=== PATIENT | male | born 2005 | race Caucasian/White ===

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

== ENCOUNTER 2024-06-23 11:00 | Outpatient (CLI) | payer BC, SELFPAY ==
--- NOTE | ~2024-06-23 | CT_ITS ---
EXAMINATION: CT wrist RT wo con DATE: 06/23/2024 12:43 INDICATION: Hamate fracture TECHNIQUE: High resolution computed tomography (CT) of the hamate was performed without intravenous c ontrast. Additional sagittal and coronal reconstructions were performed. Automated exposure control a nd iterative reconstruction technique were employed. The dose-length product was 326.53 mGy-cm. COMPARISON: Radiographs dated 06/23/2024 FINDINGS: Comminuted intra-articular fracture of the hamate. There is dorsal displacement and impaction with do rsal buckling of the fragments dorsal to the dominant coronally oriented fracture plane. This results in a 6 mm fracture gap at the volar aspect of the articular surface. There is a second comminuted in tra-articular impaction fracture at the base of the fourth metacarpal with 2-3 mm palmar displacement of the dominant volar sided fragment. There are a few tiny central fracture fragments. No other frac tures identified. Aside from the fractures the joint spaces are normal. Mild subcutaneous edema about the ulnar side of the hand. IMPRESSION: 1. Comminuted intra-articular fracture of the hamate and base of the fourth metacarpal with displacem ent as detailed above. Reviewed, dictated and finalized at location B. [employer] IMPRESSION: 1. Comminuted intra-articular fracture of the hamate and base of the fourth met acarpal with displacement as detailed above.
--- NOTE | ~2024-06-23 | XR_ITS ---
XR hand RT min 3V Ordering provider: Maribell Hou History: . M79.641 - Pain in right hand . Comparison: None. FINDINGS: BONES: No acute fracture or dislocation. JOINT SPACES: Normal. SOFT TISSUES: Normal. IMPRESSION: No acute osseous abnormality right hand. Reviewed, dictated and finalized at location A. CTOR OF SALES MARKETING
== END 2024-06-23 11:01 | disposition home or self-care (01) ==
PROVIDERS: PCP Nurse Practitioner Family; Visit Provider Plastic Surgery
DX: S62.141A Displaced fracture of body of hamate [unciform] bone, right wrist, initial encounter for closed fracture (principal); X58.XXXA Exposure to other specified factors, initial encounter
CPT/HCPCS: 73130; 73200

== ENCOUNTER 2024-06-26 02:41 | Day surgery (SDC) | payer BC, SELFPAY ==
--- NOTE | 2024-06-24 10:21 | PC.NURSE ---
Report to the Outpatient Waiting Room, entrance under the green pavilion located off [facility], at time _10:00am on date _06/26/24 . Planned Procedure Time: _12:00pm .? Time changes happen often and if your time is changed the preop area will call you the afternoon before. - You and your visitor will be asked to self-screen and do not enter if you have any COVID symptoms. Please call surgeon if you need to reschedule. - A mask is optional within the hospital at this time. Patients -- No food or drink from midnight until time of surgery and no smoking. This includes no chewing gum, candy or mints.- Take only the following medications with a SIP of water on the morning of surgery: __None DO NOT STOP ANY OF YOUR OTHER PRESCRIPTION MEDICATIONS PRIOR TO SURGERY EXCEPT THE FOLLOWING Medications to discontinue per physician ___None Date to take last dose None Please no make-up, nail togolese, hairspray, perfume, deodorant, or body powder the day of surgery.? No jewelry (including any body piercings) or valuables the day of surgery, leave them at home.? Please take a shower or bath the night before, or the morning of, surgery with an antibacterial soap.? Wear comfortable, loose fitting clothing.? Children are encouraged to wear pajamas. - Jewelry must be removed prior to entering the operating room.? Rings and piercings that are not removed may be cut off. - The hospital will not accept responsibility for valuables.? - Please leave all valuables, including medications, at home the day of surgery. If you are going home after surgery, a licensed pile driver operator barge mounted must drive you home.? - NO public transportation without another adult if you receive anesthesia. - We recommend that an adult stay with you for 24 hours following discharge. - We also recommend that you do not drive, make important decision, drink alcoholic beverages, or take any drugs that were not prescribed by your health care provider for at least 24 hours after your discharge time. Follow any additional instructions given to you from your surgeon. Telephone instructions given to _Patient and asked if any additional questions and then verbalized understanding. Patient advised to call surgeon office or pre surgery nurse liaison [phone] if any additional questions.
[2024-06-24 12:06] VITALS: BMI 42.9
[2024-06-26] VITALS (10 sets, daily range): BP systolic 134–162; BP diastolic 71–99; PULSE 68–93; RESP 14–20; TEMP 36.2–36.4; O2SAT 97–100
--- NOTE | ~2024-06-26 | XR_ITS ---
EXAMINATION: XR surgery orthopedic DATE: 06/26/2024 13:12 INDICATION: ORIF of the right hamate and fourth metacarpal fracture. TECHNIQUE: 3 fluoroscopic images of the right wrist were obtained during procedure performed by Dr. Ronny kelley. Radiologist was not present for the imaging or procedure. The amount of fluoroscopy time u sed during this procedure was 2.1 minutes. Total DAP was 7.363 cGycm^2 COMPARISON: CT dated 06/23/2024 FINDINGS: Initial image demonstrates placement dorsal palmar placement of a fixation device, possibly a walker james screw across the hamate fracture which appears. Reduced to near-anatomic alignment. Subsequent i mages demonstrate reduction of the fracture subluxation of the base of the fourth metacarpal which is now fixed by percutaneous pins extending across the proximal aspect of the third-fifth metacarpals. No new fractures identified. Joint spaces appear relatively preserved throughout. IMPRESSION: 1. Near-anatomic alignment post reduction and fixation of fractures of the hamate and base of the fou rth metacarpal. See procedure note for further detail. Reviewed, dictated and finalized at location B. CTOR OF PATIENT SAFETY IMPRESSION: 1. Near-anatomic alignment post reduction and fixation of fractures of the hama te and base of the fourth metacarpal. See procedure note for further detail.
--- NOTE | 2024-06-26 06:59 | WPDHPUPDATE1 ---
History and Physical Update Update Date/Time: 06/26/24 06:59 Patient seen and examined in pre-operative holding area. No interval change in medical history or symptoms. Patient recalls previous discussion of benefits and alternatives to procedure. Continues to desire to proceed with open reduction internal fixation right hamate and right fourth metacarpal fracture. Reviewed procedure, post-op expectations and risks including but not limited to bleeding, infection, injury to tendon/nerve/vessel, decreased hand function, stiffness, RSD, no change or worsening of symptoms, malunion, nonunion. I discussed the possible use of assistants and their participation in the case. Patient stated understanding and signed the consent form wishing to proceed.
--- NOTE | 2024-06-26 07:00 | P.OP_ITS ---
Procedure Note - Detailed Date of Procedure 06/26/24 Pre-op Diagnosis right hamate and foruth metacarpal fracture Post-op Diagnosis Same Procedure Performed orif right hamate and 4th mc fx Surgeon aMribell Hou MD Manufacturing Technology Professor gilbert carr pa-c Anesthesia MAC Description of Procedure INFORMED CONSENT: The patient was seen and examined and marked in the pre-op area.? The patient signed the consent form. PROCEDURE IN DETAIL:The patient taken back to OR on the stretcher in supine position. Time out performed with anesthesia, surgeon and staff agreeing on patient's name site and surgery to be performed SCDs were placed on the lower extremities and inflated. A tourniquet was placed on {right} upper extremity and antibiotics given IV After anesthesia administered sedation I injected {8}cc 1%lido and 0.5% marcaine plain at the operative site The?{right upper extremity}?was prepped and draped in sterile fashion the??{right upper extremity} was? exsanguinated with Esmarch bandage and tourniquet inflated to 250mmHg Any C-arm was draped and brought into the field. I began a applying traction to the 4th and 5th metacarpals utilizing ligament to [place] to help improve reduction of the hamate and 4th metacarpal base fracture. I proceeded with placing a 6 2 and a 4 5 K-wire in an ulnar to radial fashion across the 5th 4th 3rd metacarpals. This helped maintain reduction of the hamate and the 4th metacarpal fracture. I I proceeded with making a longitudinal incision over the dorsum of the hamate through skin and dermis with a 15 blade scalpel. Littler scissors were used to spread through subcutaneous tissue down to the joint capsule. I proceeded with making an incision over the periosteum of the hamate and then elevated these periosteal skin flaps. Multiple views of mini fluoroscopy were used to verify position of hamate. Preoperative CT images were measured noting that the thickness of the hamate was less than 14 mm occluding expected compression of the fracture site. Because of this I marked my initial K-wire for 10 mm. This was inserted in a dorsal to volar fashion. Multiple views of fluoroscopy were taken noting this K-wire appeared to be appropriately placed in the hook of the hamate. I measured and used a marking pen to ha the drill bit as well at 10 mm. I drilled over the K-wire stopping just short of this 10 mm marking. I proceeded with placing an Arthrex 2.5 mm diameter 8 mm long screw. Screw placement was verified on multiple views of fluoroscopy as well as live fluoro and appear to be in appropriate position with improved compression of the dorsal hamate fracture fragment. I irrigated with normal saline and repaired the periosteum with 3-0 Vicryl suture. 3-0 Vicryl was used for dermis and 4-0 Monocryl used for subcuticular closure. The K-wires were trimmed below the skin. Further fluoroscopic imaging noted improved proximal cascade of the metacarpals and the previously noted prominent dorsal hamate fragment was compressed and reduced in a more appropriate fashion. A dressing of Dermabond, 4x4, adelaida, and a volar splint was applied for patient safety, security, and comfort and secured with an lennox bandage after the tourniquet was let down noting the hand was warm and well perfused. The patient was then awaken from anesthesia and transferred to the recovery room in stable condition.? Complications - none EBL- 1cc Disposition - home in stable conditions Gilbert Carr PA-C was essential for positioninig, retraction, fluoro, reduction,, instrumentation, closure and dressing palcement [facility] [place] Billing Surgery - Charge Forward: Surgery Billing ([id number]. same codes for gilbert jones )
[2024-06-26] MEDS: LACTATED RINGERS 1,000 ML 30 ML IV CONT ×2 (10:37→13:22)
--- NOTE | 2024-06-26 11:48 | WPDANESEPPF ---
Anes - Initial Pre Proc Eval Procedure: Operation Date: 06/26/24 12:00 Proposed Procedures p Open Reduction Internal Fixation Right Hamate and Fourth Metacarpal Fracture - Maribell Hou MD Date/Time: 06/26/24 11:48 Surgeon: Maribell Hou MD Pre Op Diagnosis: right hamate fx Patient Data Age: 18 Gender: M Height: 1.73 m Weight: 133.5 kg Last Vital Signs Temp 97.6 F 06/26/24 10:10 Pulse 93 06/26/24 10:10 Resp 16 06/26/24 10:10 BP 158/79 H 06/26/24 10:10 Pulse Ox 99 06/26/24 10:10 O2 Del Method Room Air 06/26/24 10:10 Allergies Allergy/AdvReac Type Severity Reaction Status Date / Time No Known Allergies Allergy Verified 06/26/24 10:21 Home Medications ?Medication ?Instructions ?Recorded ?Confirmed ?Type deucravacitinib 6 mg tablet 6 mg PO DAILY 10/30/23 06/24/24 History (Sotyktu) cephalexin 500 mg capsule 500 mg PO Q8H #21 caps 06/26/24 Rx hydrocodone 5 mg-acetaminophen 325 1 tablet PO Q6H PRN pain #12 tabs 06/26/24 Rx mg tablet Patient hx anesthesia problems: none Family hx anesthesia problems: none and other (Father reports that pts mother has problems w some local anesthetics at the dentist. (-sloan). No hx of MH or family hx of high temp under GA. ) Results Review: All pre-operative results and documents have been reviewed as part of the pre-operative evaluation. [facility] Past Medical History Medical History Appendicitis Surgical History Surgical History Hx of appendectomy Family History Family History Grandparent Diabetes mellitus Hypertension Heart problem Grandparent Diabetes mellitus Hypertension Heart problem Mother Depression Anxiety Father Depression Anxiety Heart problem Sibling Depression Anxiety Thyroid disorder Social History Social History Social History: Student Smoking status: Never smoker Second hand tobacco smoke exposure: No Alcohol intake: never Substance use: never Substance use type: does not use Lack of Transportation: No Lack of Food: Never True Current Housing: I Have Housing Concerned About Future Housing: No Difficulty Paying Gas/Electric Bills: No Difficulty Paying for Meds: No Currently Unemployed: No Education: High School Diploma/GED Difficulty w/ Childcare or Family Care: No Living arrangements: with family Occupation/Education: student Additional occupation/education comments: starting college at [employer] for [employer] Gender identity (if verbalized by the patient): Male Spiritual care concerns: No Anes - Eval Final PreProcedure Day of Procedure 06/26/24 11:48 Patient weight: morbidly obese Heart: regular rate and rhythm Lungs: clear to auscultation Airway: Mallampati scale class II Neurological: alert and oriented Last oral intake: >/= 8 hours ASA classification: III Emergent: no Anesthetic plan: proceed Anesthesia type and monitoring: general LMA and standard monitoring Results Review: All pre-operative results and documents have been reviewed as part of the pre-operative evaluation. BMI 44. Pts father says pt snore, no known ANNALISA. Informed Consent: The patient's anesthetic plan and its attendant risks and benefits were discussed with the patient/family/POA. Questions were solicited and answers provided to the satisfaction of the patient/family/POA.
[2024-06-26] MEDS: ceFAZolin 3 GM/D5W 100 ML 100 ML IVPB (11:55)
[2024-06-26] MEDS: LIDOCAINE 1% LOCAL INJ 10 ML VIAL 5 ML INFILTRATE (12:17)
[2024-06-26] MEDS: BUPivacaine HCL 0.5% 10 ML AMP 5 ML INFILTRATE (12:18)
[2024-06-26] MEDS: fentaNYL CITRATE INJ (*CRX) 100 MCG/2 ML VIAL 25 MCG IV PUSH ×4 (13:48→14:02)
[2024-06-26] MEDS: ONDANSETRON INJ 4 MG/2 ML VIAL IV PUSH (14:17)
[2024-06-26] MEDS: oxyCODONE HCL (*CRX) 5 MG TAB IR PO (14:44)
== END 2024-06-26 15:30 | disposition home or self-care (01) ==
PROVIDERS: PCP Nurse Practitioner Family; Visit Provider Plastic Surgery
PROC: (CPT 25645; principal; 2024-06-26 12:00)
DX: S62.141A Displaced fracture of body of hamate [unciform] bone, right wrist, initial encounter for closed fracture (principal); X58.XXXA Exposure to other specified factors, initial encounter; Z79.891 Long term (current) use of opiate analgesic; Z98.890 Other specified postprocedural states; Z82.49 Family history of ischemic heart disease and other diseases of the circulatory system
CPT/HCPCS: 25645; 26685; 99199; A9270; C1713; J0690; J2003; J2250; J2405; J2704; J3010; J7120

== ENCOUNTER 2024-07-11 10:50 | Outpatient (CLI) | payer BC, SELFPAY ==
--- NOTE | ~2024-07-11 | XR_ITS ---
XR wrist RT min 3V Ordering provider: Fabiola Nickerson PA-C History: . S62.141A - Displaced fracture of body of hamate [unciform... . Comparison: June 23/2024 FINDINGS: BONES: Postoperative changes are seen in the area of the third, fourth and fifth metacarpal bones. Ca st is seen medially. Screw is noted in the area of the hamate bone. JOINT SPACES: Normal. SOFT TISSUES: Normal. IMPRESSION: Postoperative changes are present. The medial 3 metacarpal bones. Postoperative changes in the hamate bone. Reviewed, dictated and finalized at location A. ON SETTER
== END 2024-07-11 10:51 | disposition home or self-care (01) ==
LOC: ANHIMG 10:51
PROVIDERS: PCP Nurse Practitioner Family; Visit Provider Physician Assistant Surgical
DX: S62.141D Displaced fracture of body of hamate [unciform] bone, right wrist, subsequent encounter for fracture with routine healing (principal); X58.XXXD Exposure to other specified factors, subsequent encounter
CPT/HCPCS: 73110

== ENCOUNTER 2024-07-25 11:44 | Outpatient (CLI) | payer BC, SELFPAY ==
--- NOTE | ~2024-07-25 | XR_ITS ---
EXAMINATION: XR hand RT 2V DATE: 07/25/2024 12:02 INDICATION: Displaced fracture of body of hamate. TECHNIQUE: 2 views of right hand were obtained. COMPARISON: Right hand radiographs 06/23/2024, right wrist CT 06/23/2024 FINDINGS: Alignment is normal. There is a fracture deformity of hamate with screw fixation in near-an atomic alignment. There is a fracture deformity of base of fourth metacarpal in near-anatomic alignme nt. There are 2 pins involving the third-fifth metacarpals. Joint spaces are normal. Cast material is noted. IMPRESSION: 1. Fracture deformities of hamate and base of fourth metacarpal without change. Reviewed, dictated and finalized at location A. LOGY TEACHER
--- OUTSIDE RECORDS SUMMARY | 2024-07-25 11:48 | XMS_ITS | Patient Health Summary ---
Author Organization [facility] Address [address] [place] [address] Care Team Providers Care Union Steward Name Role Phone Basia Stephens MD Primary Care Provider [phone] Note from [facility],non-owned Affiliates and Associated Physician Practices is amultiple site organization consisting of ambulatory clinics and hospital sitesin [place], [place], [place] and [place]. This disclosure is being madepursuant to the Care Everywhere program and may not contain all information available regarding this patient. Last updated 18.[facility] Allergies No known active allergies Medications * Be aware that medications may not be up to date on this document. Alwaysverify current medications with the patient. * Diphenhydramine-Pseudoephed (BENADRYL ALLERGY/SINUS) 12.5-30 MG/5ML LIQD Take by mouth. bid Active Problems Problem Noted Date Diagnosed Date Spinal asymmetry (< 10 degrees) 12/09/2012 Genu valgum 12/09/2012 Social History Tobacco Use Types Packs/Day Years Used Date Smoking Tobacco: Never Alcohol Use Standard Drinks/Week Comments No 0 (1 standard drink = 0.6 oz pur e alcohol) Sex and Gender Information Value Date Recorded Sex Assigned at Not on file Gender Identity Not on file Sexual Orientation Not on file Procedures * XR SCOLIOSIS 1VW(Performed 11/25/2012) Performed for Scoliosis (and kyphoscoliosis), idiopathic Results * XR SCOLIOSIS ERECT (1+views) (11/25/2012 2:56 PM CDT) Anatomical Region Laterality Modality Spine Radiographic Molly ging 11/25/2012 3:09 PM CDT Impressions 11/25/2012 3:09 PM CDT Scoliosis and pelvic tilt as above. Narrative 11/25/2012 3:09 PM CDT Scoliosis series performed November 25, 2012. History: Scoliosis. Upright frontal and lateral views of the spine were obtained. No prior scoliosis films are available for comparison. There is a minimal thoracic dextroscoliosis with a Casarez angle of 10 degrees as measured from T4 to T11. No segmentation abnormalities or obvious paraspinal masses are noted. The right iliac crest is slightly higher than the left suggesting possible leg length discrepancy. Procedure Note Rola Morales MD - 11/25/2012 Scoliosis series performed November 25, 2012. History: Scoliosis. Upright frontal and lateral views of the spine were obtained. No prior scoliosis films are available for comparison. There is a minimal thoracic dextroscoliosis with a Casarez angle of 10 degrees as measured from T4 to T11. No segmentation abnormalities or obvious paraspinal masses are noted. The right iliac crest is slightly higher than the left suggesting possible leg length discrepancy. IMPRESSION Scoliosis and pelvic tilt as above. Nkechi Arrieta APRN-[facility] ROSE MARY G ORDERABLES Care Teams Union Steward Relationship Specialty Start Date End Date Basia Stephens MD PCP - General 01/17/10
--- OUTSIDE RECORDS SUMMARY | 2024-07-25 11:48 | XMS_ITS | Clinical Summary ---
Author Organization [facility] Address [address] [place] [address]. [place], [place] [address] [place] [address] Care Team Providers Care Family Resource Management Professor Name Role Phone Namita Campbell MD Primary Care Provider [phone] Allergies No known active allergies Social History Tobacco Use Types Packs/Day Years Used Date Smoking Tobacco: Never Smokeless Tobacco: Never Sex and Gender Information Value Date Recorded Sex Assigned at Not on file Legal Sex Male 6:55 PM CDT Gender Identity Not on file Sexual Orientation Not on file Last Filed Vital Signs Vital Sign Reading Time Taken Comments Blood Pressure 138/78 05/08/2021 5:48 PM JUNIOR PROJECT MANAGER Pulse 80 05/08/2021 5:48 PM JUNIOR PROJECT MANAGER Temperature 37.2 ??C (98.9 ??F) 05/08/2021 3:41 PM CS T Respiratory Rate 15 05/08/2021 5:48 PM JUNIOR PROJECT MANAGER Oxygen Saturation 100% 05/08/2021 5:48 PM JUNIOR PROJECT MANAGER Inhaled Oxygen Concentration - - Weight 81.6 kg (180 lb) 05/08/2021 3:41 PM JUNIOR PROJECT MANAGER Height 170.2 cm (5' 7 ) 05/08/2021 3:41 PM JUNIOR PROJECT MANAGER Body Mass Index 28.19 05/08/2021 3:41 PM JUNIOR PROJECT MANAGER Body Mass Index Percentile 95.19% 05/08/2021 3:4 1 PM JUNIOR PROJECT MANAGER Growth Chart: CDC (Boys, 2-2 0 Years) Plan of Treatment Health Maintenance Due Date Last Done Comments Annual Physical 11/11/2007 Meningococcal B Vaccine (1 o f 2 - Standard) 2020 HPV Vaccines (2 - Male 3-dos e series) 01/28/2021 12/31/2020 Hepatitis C 2022 DTaP, Tdap and Td Vaccines ( 1 - Tdap) 11/11/2023 Hepatitis B Vaccines (1 of 3 - 19+ 3-dose series) 11/11/2023 COVID-19 Vaccine ( - 2023-2 5 season) 2024 12/12/2020, 11/12/2020 Influenza Adult (#1) 2024 Meningococcal Vaccine Completed 12/31/2020 Pneumococcal Vaccine: Pediatrics (0 to 5 Years) and At-Risk Patients (6 to 64 Years) Aged Out No longer eligible b ased on patient's age to complete this topic RSV Immunizations Under 20 Months Aged Out No longer eligible b ased on patient's age to complete this topic Insurance Care Teams Family Resource Management Professor Relationship Specialty Start Date End Date Namita Campbell MD [address] [facility] [address] [place] [address] PCP - General FAMILY PRACTICE 05/08/21
--- OUTSIDE RECORDS SUMMARY | 2024-07-25 11:48 | XMS_ITS | Clinical Summary ---
Author Organization [facility] [employer] Address [address] [place] [address] Care Team Providers Care Slicer Machine Operator Name Role Phone Basia Stephens MD Primary Care Provider [phone] Source Comments [facility] [employer],non-owned Affiliates and Associated Physician Practices is amultiple site organization consisting of ambulatory clinics and hospital sitesin [place], [place], [place] and [place]. This disclosure is being madepursuant to the Care Everywhere program and may not contain all information available regarding this patient. Last updated 18.[facility] [employer] Allergies No known active allergies Medications * Be aware that medications may not be up to date on this document. Alwaysverify current medications with the patient. Medication Sig Dispensed Refills Start Date End Date Status Diphenhydramine-Pseudoe phed (BENADRYL ALLERGY/SINUS) 12.5-30 MG/5ML LIQD Take by mouth. bid Active Active Problems Problem Noted Date Diagnosed Date Spinal asymmetry (< 10 degrees) 12/09/2012 Genu valgum 12/09/2012 Family History Medical History Relation Name Comments Allergy (Severe) Neg Hx Anesthesia Reaction Neg Hx Arrhythmia Neg Hx Asthma Neg Hx Broken Bones Neg Hx Cancer Neg Hx Clotting Disorder Neg Hx Collagen Disease Neg Hx Diabetes Neg Hx Dislocations Neg Hx Hypercholesterolemia Neg Hx Hypertension Neg Hx [place] Neg Hx Marfan Syndrome Neg Hx Osteoporosis Neg Hx Rheumatological Disease Neg Hx Scoliosis Neg Hx Severe Sprains Neg Hx Sickle Cell Anemia Neg Hx Sudd. <30 Neg Hx Social History Tobacco Use Types Packs/Day Years Used Date Smoking Tobacco: Never Alcohol Use Standard Drinks/Week Comments No 0 (1 standard drink = 0.6 oz pur e alcohol) Sex and Gender Information Value Date Recorded Sex Assigned at Not on file Gender Identity Not on file Sexual Orientation Not on file Plan of Treatment Health Maintenance Due Date Last Done Comments HIV SCREENING 11/11/2019 HPV VACCINE (1 - Male 3-dose series) 11/11/2019 MENINGOCOCCAL (Group B) VACC INE (1 of 2 - Standard) 2020 HEPATITIS C SCREENING 11/06/2022 DTAP/TDAP/TD VACCINES (1 - Tdap) 11/11/2023 HEPATITIS B VACCINE (1 of 3 - 19+ 3-dose series) 11/11/2023 COVID-19 VACCINE (1 - 2023-2 5 season) 2024 INFLUENZA VACCINE (#1) 2024 DEPRESSION SCREENING 06/25/2024 ZOSTER VACCINE (1 of 2) 2054 HIB VACCINE Aged Out No longer eligi ble based on patient's age to complete this topic MENINGOCOCCAL VACCINE Aged Out No michael joann eligible based on patient's age to complete this topic PNEUMOCOCCAL VACCINE Aged Out No long er eligible based on patient's age to complete this topic Care Teams Slicer Machine Operator Relationship Specialty Start Date End Date Basia Stephens MD PCP - General 01/17/10
--- OUTSIDE RECORDS SUMMARY | 2024-07-25 11:48 | XMS_ITS | Referral Summary ---
Author Organization [facility] Address [address] [place] [address] Care Team Providers Care Fitter Hand Name Role Phone Basia Stephens MD Primary Care Provider [phone] Source Comments [facility] [employer],non-owned Affiliates and Associated Physician Practices is amultiple site organization consisting of ambulatory clinics and hospital sitesin [place], [place], [place] and [place]. This disclosure is being madepursuant to the Care Everywhere program and may not contain all information available regarding this patient. Last updated 18.[facility] [employer] Allergies No known active allergies Medications * [...] Orientation Not on file Plan of Treatment Not on file Care Teams Fitter Hand Relationship Specialty Start Date End Date Basia Stephens MD PCP - General 01/17/10
[2024-07-25 12:26] LABS: Basophils Percent Auto 0.6 % (0.2-1.2); Eosinophils Percent Auto 0.8 % (0-4.4); Hemoglobin 15.9 g/dL (14.0-18.0); Immature Granulocyte Absolute 0.01 K/mm3 (0.00-0.031); Immature Granulocyte Percent A 0.2 % (0-0.5); Lymphocytes Absolute Auto 1.34 K/mm3 (0.9-3.2); Lymphocytes Percent Auto 25.8 % (18.3-44.2); Mean Corpuscular HGB Conc 32.4 g/dl (32-36); Mean Corpuscular Hemoglobin 26.7 pg (26-34); Mean Corpuscular Volume 82.2 fl (80-100); Mean Platelet Volume 10.2 fl (7.4-10.4); Monocytes Absolute Auto 0.4 K/mm3 (0.1-0.6); Monocytes Percent Auto 7.3 % (2.6-8.5); Neutrophils Absolute Auto 3.4 K/mm3 (1.3-6.7); Neutrophils Percent Auto 65.3 % (45.5-73.1); Platelet Count Result 231 k/mm3 (150-375); Red Blood Count 5.96 M/mm3 (4.6-6.20); Red Cell Distribution Width 12.4 % (11.5-14.5); White Blood Count 5.2 K/mm3 (4.5-10.0)
[2024-07-25 12:39] LABS: Alanine Aminotransferase 46 U/L (6-50); Albumin Level 4.9 g/dL (3.7-5.6); Alkaline Phosphatase 83 U/L (58-237); Aspartate Amino Transferase 41 U/L (17-59); Bilirubin,Total 0.8 mg/dL (0.2-1.3)
== END 2024-07-25 11:45 | disposition home or self-care (01) ==
PROVIDERS: PCP Nurse Practitioner Family; Visit Provider Physician Assistant Surgical
DX: S62.141A Displaced fracture of body of hamate [unciform] bone, right wrist, initial encounter for closed fracture (principal); X58.XXXA Exposure to other specified factors, initial encounter; L40.0 Psoriasis vulgaris; Z79.899 Other long term (current) drug therapy
CPT/HCPCS: 36415; 73120; 80076; 85025

== ENCOUNTER 2024-08-01 00:51 | Day surgery (SDC) | payer BC, SELFPAY ==
[2024-07-22 13:49] VITALS: BMI 37.0
--- NOTE | 2024-07-22 13:53 | PC.NURSE ---
Report to the Outpatient Waiting Room, entrance under the green pavilion located off [facility], at time _1000_ on date _[id number]_. Planned Procedure Time: _1200_.? Time changes happen often and if your time is changed the preop area will call you the afternoon before. - You and your visitor will be asked to self-screen and do not enter if you have any COVID symptoms. Please call surgeon if you need to reschedule. - A mask is optional within the hospital at this time. Patients may have clear liquids (water, carbonated beverages, clear teas, apple juice) until 3 hours prior to surgery with a maximum of 20 ounces. - No food from midnight until time of surgery and no smoking. This includes no chewing gum, candy or mints. Take only the following medications with a SIP of water on the morning of surgery: ____None____ DO NOT STOP ANY OF YOUR OTHER PRESCRIPTION MEDICATIONS PRIOR TO SURGERY EXCEPT THE FOLLOWING Medications to discontinue per physician __None Date to take last dose Hold all vitamins and supplements for 3 days per anesthesiologist. Please no make-up, nail liberian, hairspray, perfume, deodorant, or body powder the day of surgery.? No jewelry (including any body piercings) or valuables the day of surgery, leave them at home.? Please take a shower or bath the night before, or the morning of, surgery with an antibacterial soap.? Wear comfortable, loose fitting clothing.? - Jewelry must be removed prior to entering the operating room.? Rings and piercings that are not removed may be cut off. - The hospital will not accept responsibility for valuables.? - Please leave all valuables, including medications, at home the day of surgery. If you are going home after surgery, a licensed hazardous materials driver must drive you home.? - NO public transportation without another adult if you receive anesthesia. - We recommend that an adult stay with you for 24 hours following discharge. - We also recommend that you do not drive, make important decision, drink alcoholic beverages, or take any drugs that were not prescribed by your health care provider for at least 24 hours after your discharge time. Follow any additional instructions given to you from your surgeon. Telephone instructions given to __Benjamin___and asked if any additional questions and then verbalized understanding. Patient advised to call surgeon office or pre surgery nurse liaison [phone] if any additional questions.
--- NOTE | 2024-07-22 13:57 | PC.NURSE ---
Report to the Outpatient Waiting Room, entrance under the green pavilion located off [facility], at time _1000_ on date _[id number]_. Planned Procedure Time: _1200_.? Time changes happen often and if your time is changed the preop area will call you the afternoon before. - You and your visitor will be asked to self-screen and do not enter if you have any COVID symptoms. Please call surgeon if you need to reschedule. - A mask is optional within the hospital at this time. May have clear liquids (water, carbonated beverages, clear teas, apple juice) until 4am with a maximum of 20 ounces. Nothing to drink after 4am. - No food from midnight until time of surgery and no smoking. This includes no chewing gum, candy or mints. Take only the following medications with a SIP of water on the morning of surgery: __None DO NOT STOP ANY OF YOUR OTHER PRESCRIPTION MEDICATIONS PRIOR TO SURGERY EXCEPT THE FOLLOWING Medications to discontinue per physician __None Date to take last dose Hold all vitamins and supplements for 3 days per anesthesiologist. Please no make-up, nail sudanese, hairspray, perfume, deodorant, or body powder the day of surgery.? No jewelry (including any body piercings) or valuables the day of surgery, leave them at home.? Please take a shower or bath the night before, or the morning of, surgery with an antibacterial soap.? Wear comfortable, loose fitting clothing.? - Jewelry must be removed prior to entering the operating room.? Rings and piercings that are not removed may be cut off. - The hospital will not accept responsibility for valuables.? - Please leave all valuables, including medications, at home the day of surgery. If you are going home after surgery, a licensed jinrikisha driver must drive you home.? - NO public transportation without another adult if you receive anesthesia. - We recommend that an adult stay with you for 24 hours following discharge. - We also recommend that you do not drive, make important decision, drink alcoholic beverages, or take any drugs that were not prescribed by your health care provider for at least 24 hours after your discharge time. Follow any additional instructions given to you from your surgeon. Telephone instructions given to __Benjamin___and asked if any additional questions and then verbalized understanding. Patient advised to call surgeon office or pre surgery nurse liaison [phone] if any additional questions.
--- NOTE | ~2024-08-01 | XR_ITS ---
EXAMINATION: XR surgery orthopedic DATE: 08/01/2024 12:26 INDICATION: Right hand pain removal TECHNIQUE: 2 fluoroscopic images of the right hand were obtained during procedure performed by Dr. Ab nunez. Radiologist was not present for the imaging or procedure. The amount of fluoroscopy time us ed during this procedure was 0.1 minutes. Total DAP was 0.861 cGycm^2. COMPARISON: 07/25/2024 FINDINGS: Interval removal of a pair of retained fixation pins with residual linear lucent tracts extending acr oss the fourth and fifth metacarpal diaphyses. Unchanged fixation screw at the hamate for fracture ve rsus better appreciated on prior CT dated 06/23/2024. No new fractures identified. Bone alignment brandt nt spaces are normal. IMPRESSION: 1. Fluoroscopy utilized during removal of fixation pins at the fourth and fifth metacarpals. See proc edure note for further detail. 2. Screw fixation at the hamate. Reviewed, dictated and finalized at location B. INE REBUILDER IMPRESSION: 1. Fluoroscopy utilized during removal of fixation pins at the fourth and fifth metacarpals. See procedure note for further detail. 2. Screw fixation at the hamate.
--- OUTSIDE RECORDS SUMMARY | 2024-08-01 00:53 | XMS_ITS | Referral Summary ---
Author Organization [facility] Address [address] [place] [address] Care Team Providers Care Director Of Category Management Name Role Phone Basia Stephens MD Primary Care Provider Source Comments [facility] [employer],non-owned Affiliates and Associated Physician Practices is amultiple site organization consisting of ambulatory clinics and hospital sitesin [place], [place], [place] and [place]. This disclosure is being madepursuant to the Care Everywhere program and may not contain all information available regarding this patient. Last updated 18.[facility] [employer] Allergies No known active allergies Medications * [...] of Treatment Not on file Care Teams Director Of Category Management Relationship Specialty Start Date End Date Basia Stephens MD PCP - General 01/17/10
--- OUTSIDE RECORDS SUMMARY | 2024-08-01 00:53 | XMS_ITS | Clinical Summary ---
Author Organization [facility] Address [facility] [place] [address] Care Team Providers Care Computer Technical Specialist Name Role Phone Namita Campbell MD Primary Care Provider [phone] Allergies No known active allergies Social History [...] Comments Blood Pressure 138/78 05/08/2021 5:48 PM INSTRUMENT MECHANICS SUPERVISOR Pulse 80 05/08/2021 5:48 PM INSTRUMENT MECHANICS SUPERVISOR Temperature 37.2 C (98.9 F) 05/08/2021 3:41 PM INSTRUMENT MECHANICS SUPERVISOR Respiratory Rate 15 05/08/2021 5:48 PM INSTRUMENT MECHANICS SUPERVISOR Oxygen Saturation 100% 05/08/2021 5:48 PM INSTRUMENT MECHANICS SUPERVISOR Inhaled Oxygen Concentration - - Weight 81.6 kg (180 lb) 05/08/2021 3:41 PM INSTRUMENT MECHANICS SUPERVISOR Height 170.2 cm (5' 7 ) 05/08/2021 3:41 PM INSTRUMENT MECHANICS SUPERVISOR Body Mass Index 28.19 05/08/2021 3:41 PM INSTRUMENT MECHANICS SUPERVISOR Body Mass Index Percentile 95.19% 05/08/2021 3:4 1 PM INSTRUMENT MECHANICS SUPERVISOR Growth Chart: CDC (Boys, 2-2 0 Years) [...] - 19+ 3-dose series) 11/11/2023 COVID-19 Vaccine (3 - 2023-2 5 season) 2024 12/12/2020, 11/12/2020 [...] to complete this topic Insurance Care Teams Computer Technical Specialist Relationship Specialty Start Date End Date Namita Campbell MD [address] [facility] [address] [place], [place] [id number] PCP - General FAMILY PRACTICE 05/08/21
--- OUTSIDE RECORDS SUMMARY | 2024-08-01 00:53 | XMS_ITS | Patient Health Summary ---
Author Organization [facility] Address [address] [facility] [place] [address] Care Team Providers Care Hand Stoner Name Role Phone Basia Stephens MD Primary Care Provider [phone] Note from [facility],non-owned Affiliates and Associated Physician Practices is amultiple site organization consisting of ambulatory clinics and hospital sitesin [place], [place], [place] and [place]. This disclosure is being madepursuant to the Care Everywhere program and may not contain all information available regarding this patient. Last updated 18.[facility] Allergies No known active allergies Medications * [...] DIAGNOSTIC ROSE MARY G ORDERABLES Care Teams Hand Stoner Relationship Specialty Start Date End Date Basia Stephens MD PCP - General 01/17/10
--- OUTSIDE RECORDS SUMMARY | 2024-08-01 00:53 | XMS_ITS | Clinical Summary ---
Author Organization [facility] [employer] Address [address] [facility] [place] [address] Care Team Providers Care Risk Control Product Liability Director Name Role Phone Basia Stephens MD Primary Care Provider [phone] Source Comments [facility] [employer],non-owned Affiliates and Associated Physician Practices is amultiple site organization consisting of ambulatory clinics and hospital sitesin [place], [place], [place] and [place]. This disclosure is being madepursuant to the Care Everywhere program and may not contain all information available regarding this patient. Last updated 18.[facility] [employer] Allergies No known active allergies Medications * [...] Hx Hypercholesterolemia Neg Hx Hypertension Neg Hx [place] Neg Hx Marfan Syndrome Neg Hx Osteoporosis [...] age to complete this topic Care Teams Risk Control Product Liability Director Relationship Specialty Start Date End Date Basia Stephens MD PCP - General 01/17/10
--- NOTE | 2024-08-01 10:12 | WPDHPUPDATE1 ---
History and Physical Update Update Date/Time: 08/01/24 10:12 Patient seen and examined in pre-operative holding area. No interval change in medical history or symptoms. Patient recalls previous discussion of benefits and alternatives to procedure. Continues to desire to proceed with removal right hand pin removal. Reviewed procedure, post-op expectations and risks including but not limited to bleeding, infection, injury to tendon/nerve/vessel, decreased hand function, stiffness, RSD, no change or worsening of symptoms. I discussed the possible use of assistants and their participation in the case. Patient stated understanding and signed the consent form wishing to proceed.
--- NOTE | 2024-08-01 10:12 | W.PM.PROC2 ---
Procedure Note - Detailed Date of Procedure 08/01/24 Pre-op Diagnosis s/p right hand fx Post-op Diagnosis Same Procedure Performed removal deep buried pins right hand Surgeon Maribell Hou MD Sociology Research Assistant gilbert carr pa-c Anesthesia MAC Description of Procedure INFORMED CONSENT: The patient was seen and examined and marked in the pre-op area.? The patient signed the consent form. PROCEDURE IN DETAIL:The patient taken back to OR on the stretcher in supine position. Time out performed with anesthesia, surgeon and staff agreeing on patient's name site and surgery to be performed SCDs were placed on the lower extremities and inflated. A tourniquet was placed on {right} upper extremity After anesthesia administered sedation I injected {5}cc 1%lido with epi and 0.5% marcaine plain at the operative site The?{right upper extremity}?was prepped and draped in sterile fashion 15 blade was used to make small incisions over the location of the pins on ulnar side of right hand after localization with mini flurosocopy. spreading with littler scissors down to the deep buried pins in subq tissue. pins removed with large needle transport truck driver. mini c-arm verified pin removal. fractures appears stable in reduction and healing. irrigation with normal saline. 4-0 chromic to close incisions A dressing of bacitracin, xeroform, 4x4, adelaida, and an lennox bandage was appliedafter the tourniquet was let down noting the hand was warm and well perfused. The patient was then awaken from anesthesia and transferred to the recovery room in stable condition.? Complications - none EBL- 0cc Disposition - home in stable conditions gilbert carr pa-c was essential for positioning, fluoro, closure and dressing placement [facility] Billing Surgery - Charge Forward: Surgery Billing ( and [id number] same for gilbert adding modifier )
[2024-08-01 10:27] VITALS: BP 142/85; PULSE 89; RESP 20; TEMP 36.3; O2SAT 98
--- NOTE | 2024-08-01 10:39 | SUR.PREOP ---
1015-Pt notified US RN (Gabe) per phone himself (after arriving in preop) to have Gabe initiate IV access. Gabe notified pre op staff of phone call and states he be here to start IV.
[2024-08-01] MEDS: LACTATED RINGERS 1,000 ML 30 ML IV CONT (11:05)
--- NOTE | 2024-08-01 11:59 | P.PNAN_ITS ---
Anes - Initial Pre Proc Eval Procedure: Operation Date: 08/01/24 12:00 Proposed Procedures p Right Hand Pin Removal - Maribell Hou MD Date/Time: 08/01/24 11:59 Surgeon: Maribell Hou MD Pre Op Diagnosis: s/p right hand fx Patient Data Age: 18 Gender: M Height: 1.75 m Weight: 134 kg Last Vital Signs Temp 36.3 C L 08/01/24 10:27 Pulse 89 08/01/24 10:27 Resp 20 08/01/24 10:27 BP 142/85 H 08/01/24 10:27 Pulse Ox 98 08/01/24 10:27 O2 Del Method Room Air 08/01/24 10:27 Allergies Allergy/AdvReac Type Severity Reaction Status Date / Time No Known Allergies Allergy Verified 08/01/24 10:29 Home Medications ?Medication ?Instructions ?Recorded ?Confirmed ?Type deucravacitinib 6 mg tablet 6 mg PO DAILY 10/30/23 08/01/24 History (Sotyktu) Patient hx anesthesia problems: none Family hx anesthesia problems: none Results Review: All pre-operative results and documents have been reviewed as part of the pre- operative evaluation. [facility] Past Medical History Medical History Appendicitis Surgical History Surgical History Hx of appendectomy Family History Family History Grandparent Diabetes mellitus Hypertension Heart problem Grandparent Diabetes mellitus Hypertension Heart problem Mother Depression Anxiety Father Depression Anxiety Heart problem Sibling Depression Anxiety Thyroid disorder Social History Social History Social History: Student Smoking status: Never smoker Second hand tobacco smoke exposure: No Alcohol intake: never Substance use: never Substance use type: does not use Lack of Transportation: No Lack of Food: Never True Current Housing: I Have Housing Concerned About Future Housing: No Difficulty Paying Gas/Electric Bills: No Difficulty Paying for Meds: No Currently Unemployed: No Education: High School Diploma/GED Difficulty w/ Childcare or Family Care: No Living arrangements: with family Occupation/Education: student Additional occupation/education comments: starting college at [employer] for [employer] Gender identity (if verbalized by the patient): Male Spiritual care concerns: No Anes - Eval Final PreProcedure Day of Procedure 08/01/24 11:59 Patient weight: morbidly obese Heart: regular rate and rhythm Lungs: clear to auscultation Airway: Mallampati scale class II Neurological: alert and oriented Last oral intake: >/= 8 hours ASA classification: III Emergent: no Anesthetic plan: proceed Anesthesia type and monitoring: general LMA and standard monitoring Results Review: All pre-operative results and documents have been reviewed as part of the pre- operative evaluation. Informed Consent: The patient's anesthetic plan and its attendant risks and benefits were discussed with the patient/family/POA. Questions were solicited and answers provided to the satisfaction of the patient/family/POA.
[2024-08-01] MEDS: BUPivacaine HCL 0.5% PF 30 ML VIAL INFILTRATE (12:20)
[2024-08-01] MEDS: LIDO 1%/EPINEPHRINE 1:100,000 20 ML VIAL 3 ML INFILTRATE (12:20)
[2024-08-01 12:27] VITALS: BP 150/83; PULSE 117; RESP 20; O2SAT 100
[2024-08-01 12:55] VITALS: BP 120/81; PULSE 83; RESP 16
[2024-08-01 13:25] VITALS: BP 134/84; PULSE 88; RESP 16; O2SAT 90
== END 2024-08-01 13:30 | disposition home or self-care (01) ==
PROVIDERS: PCP Nurse Practitioner Family; Visit Provider Plastic Surgery
PROC: (CPT 20694; principal; 2024-08-01 12:00)
DX: T84.84XA Pain due to internal orthopedic prosthetic devices, implants and grafts, initial encounter (principal); Y83.8 Other surgical procedures as the cause of abnormal reaction of the patient, or of later complication, without mention of misadventure at the time of the procedure; Z98.890 Other specified postprocedural states; Z82.49 Family history of ischemic heart disease and other diseases of the circulatory system
CPT/HCPCS: 20680; 99199; A9270; J2004; J2250; J2704; J3010; J7120

== ENCOUNTER 2024-08-15 10:58 | Outpatient (CLI) | payer BC, SELFPAY ==
--- NOTE | ~2024-08-15 | XR_ITS ---
EXAMINATION: XR hand RT min 3V DATE: 08/15/2024 11:10 INDICATION: Displaced fracture of body of hamate. TECHNIQUE: 3 views of right hand were obtained. COMPARISON: Right hand radiographs 07/25/2024 FINDINGS: There is a fracture deformity of the hamate with screw fixation. There are old wire tracts in the third-fifth metacarpals. Joint spaces are normal. IMPRESSION: 1. Ill-defined fracture deformity of hamate with screw fixation. Note that CT would provide better as sessment of fracture fragment alignment. Reviewed, dictated and finalized at location A. [facility] IMPRESSION: 1. Ill-defined fracture deformity of hamate with screw fixation. Note that CT w ould provide better assessment of fracture fragment alignment.
--- OUTSIDE RECORDS SUMMARY | 2024-08-15 11:33 | XMS_ITS | Clinical Summary ---
Author Organization [facility] Address [facility] [place] [address] Care Team Providers Care Biology Manager Name Role Phone Namita Campbell MD Primary Care Provider [phone] Allergies No known active allergies Social History [...] Comments Blood Pressure 138/78 05/08/2021 5:48 PM [employer] Pulse 80 05/08/2021 5:48 PM [employer] Temperature 37.2 C (98.9 F) 05/08/2021 3:41 PM [employer] Respiratory Rate 15 05/08/2021 5:48 PM [employer] Oxygen Saturation 100% 05/08/2021 5:48 PM [employer] Inhaled Oxygen Concentration - - Weight 81.6 kg (180 lb) 05/08/2021 3:41 PM [employer] Height 170.2 cm (5' 7 ) 05/08/2021 3:41 PM [employer] Body Mass Index 28.19 05/08/2021 3:41 PM [employer] Body Mass Index Percentile 95.19% 05/08/2021 3:4 1 PM [employer] Growth Chart: CDC (Boys, 2-2 0 Years) [...] to complete this topic Insurance Care Teams Biology Manager Relationship Specialty Start Date End Date Namita Campbell MD [address] [address] [place], [place] [id number] PCP - General FAMILY PRACTICE 05/08/21
--- OUTSIDE RECORDS SUMMARY | 2024-08-15 11:33 | XMS_ITS | Referral Summary ---
Author Organization [facility] Address [address] [place] [address] Care Team Providers Care Roller Shop Utility Worker Name Role Phone Basia Stephens MD Primary Care Provider [phone] Source Comments [facility],non-owned Affiliates and Associated Physician Practices is amultiple site organization consisting of ambulatory clinics and hospital sitesin [place], [place], [place] and [place]. This disclosure is being madepursuant to the Care Everywhere program and may not contain all information available regarding this patient. Last updated 18.[facility] Allergies No known active allergies Medications * [...] of Treatment Not on file Care Teams Roller Shop Utility Worker Relationship Specialty Start Date End Date Basia Stephens MD PCP - General 01/17/10
--- OUTSIDE RECORDS SUMMARY | 2024-08-15 11:33 | XMS_ITS | Patient Health Summary ---
Author Organization [facility] Address [address] [place] [address] Care Team Providers Care Tapering Machine Operator Name Role Phone Basia Stephens MD Primary Care Provider [phone] Note from [facility],non-owned Affiliates and Associated Physician Practices is amultiple site organization consisting of ambulatory clinics and hospital sitesin [place], [place], [place] and [place]. This disclosure is being madepursuant to the Care Everywhere program and may not contain all information available regarding this patient. Last updated 18.[facility] [facility] Allergies No known active allergies Medications * [...] and pelvic tilt as above. Nkechi Arrieta APRN-BLENDING MACHINE OPERATOR DIAGNOSTIC [facility] ORDERABLES Care Teams Tapering Machine Operator Relationship Specialty Start Date End Date Basia Stephens MD PCP - General 01/17/10
--- OUTSIDE RECORDS SUMMARY | 2024-08-15 11:33 | XMS_ITS | Clinical Summary ---
Author Organization [facility] Address [address] [facility] [place] [address] Care Team Providers Care Clinic Lead Name Role Phone Basia Stephens MD Primary Care Provider [phone] Source Comments [facility],non-owned Affiliates and Associated Physician Practices is amultiple site organization consisting of ambulatory clinics and hospital sitesin [place], [place], [place] and [place]. This disclosure is being madepursuant to the Care Everywhere program and may not contain all information available regarding this patient. Last updated 18.[facility] Allergies No known active allergies Medications * [...] Hx Hypercholesterolemia Neg Hx Hypertension Neg Hx NC Neg Hx Marfan Syndrome Neg Hx Osteoporosis [...] age to complete this topic Care Teams Clinic Lead Relationship Specialty Start Date End Date Basia Stephens MD PCP - General 01/17/10"
== END 2024-08-15 10:59 | disposition home or self-care (01) ==
PROVIDERS: PCP Nurse Practitioner Family; Visit Provider Physician Assistant Surgical
DX: S62.141A Displaced fracture of body of hamate [unciform] bone, right wrist, initial encounter for closed fracture (principal); X58.XXXA Exposure to other specified factors, initial encounter
CPT/HCPCS: 73130